=== PATIENT | female | born 1935 | race Caucasian/White ===

== ENCOUNTER 2023-02-02 11:18 | Inpatient (IN) ==
[2023-02-02 12:23] LABS: POC Calcium, Ionized 1.18 (1.16-1.32); POC Creatinine 1.1 (0.6-1.2); POC Potassium 4.1 (3.3-5.1)
[2023-02-02 13:30] LABS: ALT/SGPT 21 U/L (<40); AST/SGOT 23 U/L (<32); Albumin 3.9 gm/dL (3.2-5.2); Alkaline Phosphatase 79 U/L (39-117); Bilirubin,Direct < 0.2 mg/dL (0-0.3); Bilirubin,Total 0.6 mg/dL (0.1-1.0); Globulin 2.4 gm/dL (2.2-3.7)
[2023-02-02 13:55] LABS: Appearance,Urine HAZY (Clear); Bacteria,Urine FEW /hpf (0); Bilirubin,Urine Negative (Negative); Color,Urine YELLOW; Culture Indicated,Urine No; Glucose,Urine (UA) Negative (Negative); Ketones,Urine Negative (Negative); Leukocyte Esterase,Urine 250 /uL (Negative); Mucus,Urine MANY /hpf; Nitrate,Urine Negative (Negative); Protein,Urine 100 mg/dL (Negative); Specific Gravity,Urine 1.026 (1.000-1.035); Urine Blood 0.03 mg/dL (Negative); Urine RBC 8 /hpf (0-3); Urine Squamous Epithelial Cell 5 /hpf (0-4); Urine WBC 34 /hpf (0-4); Urobilinogen,Urine Negative
[2023-02-02] MEDS ORDERED: cefTRIAXone 2 GM in DEXTROSE 5% IN WATER 50 ML IV ONE (14:55)
[2023-02-02 15:22] LABS: Basophils # (Auto) 0.03 K/mcL (0.00-0.30); Basophils % (Auto) 0.3 % (0.0-2.0); Eosinophils # (Auto) 2.56 K/mcL (0.00-0.70); Eosinophils % (Auto) 25.1 % (0.0-7.0); Hematocrit 45.6 % (34.1-44.9); Hemoglobin 13.7 g/dL (11.2-15.7); Lymphocytes # (Auto) 0.86 K/mcL (1.50-4.80); Lymphocytes % (Auto) 8.4 % (15.5-49.0); Mean Cell Volume 96.8 fL (80.0-100.0); Mean Platelet Volume 10.8 fL (8.8-12.5); Monocytes # (Auto) 0.75 K/mcL (0.10-0.90); Monocytes % (Auto) 7.3 % (1.0-12.0); Neutrophils % (Auto) 58.6 % (38.0-78.0); Platelet Count 290 K/mcL (140-440); RBC 4.71 M/mcL (3.59-5.38); Red Cell Distribution Width 15.3 % (11.5-14.5); WBC 10.2 K/mcL (4.5-11.0)
[2023-02-02] MEDS ORDERED: HALOPERIDOL 5 MG TABLET PO ONE (16:41)
[2023-02-02] MEDS ORDERED: POTASSIUM CHLORIDE 40 MEQ in DEXTROSE 5% IN WATER 500 ML IV PRN (18:46)
[2023-02-02] MEDS ORDERED: IPRATROPIUM/ALBUTEROL 3 ML AMPUL.NEB NEB PRN (18:46)
[2023-02-02] MEDS ORDERED: MAGNESIUM SULFATE 2 GM/50 ML BAG IV PRN (18:46)
[2023-02-02] MEDS ORDERED: METOPROLOL TARTRATE 5 MG/5 ML VIAL IV PRN (18:46)
[2023-02-02] MEDS ORDERED: ACETAMINOPHEN 325 MG TABLET PO PRN (18:46)
[2023-02-02] MEDS ORDERED: POTASSIUM CHLORIDE 20 MEQ TABLET PO PRN ×2 (18:46)
[2023-02-02] MEDS ORDERED: ONDANSETRON 4 MG/2 ML VIAL IV PRN (18:46)
[2023-02-02] MEDS ORDERED: SENNOSIDES 1 TABLET PO PRN (18:46)
[2023-02-02] MEDS ORDERED: cefTRIAXone 1 GM in DEXTROSE 5% IN WATER 50 ML IV SCH (18:46)
[2023-02-02] MEDS ORDERED: POLYETHYLENE GLYCOL 3350 17 GM PACKET PO PRN (18:46)
[2023-02-02] MEDS ORDERED: OLANZapine 5 MG TABLET PO PRN (18:46)
[2023-02-02] MEDS: 0.9 % SODIUM CHLORIDE 1,000 ML IV SCH (19:32)
[2023-02-02] MEDS: 0.9 % SODIUM CHLORIDE 10 ML SYRINGE IV SCH (20:01)
[2023-02-02] MEDS: TRIAMCINOLONE CREAM 0.1% 15G 1 DOSE TUBE TOPICAL SCH (20:57)
[2023-02-02] MEDS ORDERED: BETAMETHASONE DIPR OINT 0.05% 15 GM TUBE TOPICAL SCH (21:00)
[2023-02-02] MEDS: HALOPERIDOL 5 MG TABLET PO PRN (21:20)
[2023-02-02] MEDS: DOCUSATE SODIUM 100 MG CAPSULE PO SCH (21:23)
[2023-02-02] MEDS: FAMOTIDINE 20 MG TABLET PO SCH (21:23)
[2023-02-03] MEDS: 0.9 % SODIUM CHLORIDE 10 ML SYRINGE IV SCH ×3 (04:20→22:24)
[2023-02-03] MEDS: 0.9 % SODIUM CHLORIDE 1,000 ML IV SCH (04:38)
[2023-02-03 06:48] LABS: Basophils # (Auto) 0.02 K/mcL (0.00-0.30); Basophils % (Auto) 0.2 % (0.0-2.0); Eosinophils # (Auto) 2.48 K/mcL (0.00-0.70); Eosinophils % (Auto) 28.1 % (0.0-7.0); Hematocrit 39.2 % (34.1-44.9); Hemoglobin 12.3 g/dL (11.2-15.7); Lymphocytes # (Auto) 1.08 K/mcL (1.50-4.80); Lymphocytes % (Auto) 12.2 % (15.5-49.0); Mean Cell Volume 93.3 fL (80.0-100.0); Mean Corpuscular HGB Conc 31.4 g/dL (31.0-36.0); Mean Platelet Volume 10.9 fL (8.8-12.5); Monocytes # (Auto) 0.73 K/mcL (0.10-0.90); Monocytes % (Auto) 8.3 % (1.0-12.0); Neutrophils % (Auto) 51.1 % (38.0-78.0); Platelet Count 251 K/mcL (140-440); Red Cell Distribution Width 14.8 % (11.5-14.5); WBC 8.8 K/mcL (4.5-11.0)
[2023-02-03 07:04] LABS: ALT/SGPT 15 U/L (<40); AST/SGOT 19 U/L (<32); Albumin 3.4 gm/dL (3.2-5.2); Albumin/Globulin Ratio 1.8 (1.0-2.3); Alkaline Phosphatase 67 U/L (39-117); Bilirubin,Direct < 0.2 mg/dL (0-0.3); Bilirubin,Total 0.4 mg/dL (0.1-1.0); Blood Urea Nitrogen 13 mg/dL (8-23); Calcium 8.7 mg/dL (8.6-10.4); Carbon Dioxide 26 mmol/L (22-30); Chloride 106 mmol/L (96-108); Globulin 1.9 gm/dL (2.2-3.7); Glomerular Filtration Rate 67; Glucose 91 mg/dL (70-105); Lactate Dehydrogenase 321 U/L (135-225); Phosphorous 3.5 mg/dL (2.5-4.5); Triglycerides 129 mg/dL (<150); Uric Acid 5.4 mg/dL (2.5-8.0)
[2023-02-03] MEDS: FAMOTIDINE 20 MG TABLET PO SCH (08:27)
[2023-02-03] MEDS: HALOPERIDOL 5 MG TABLET PO PRN ×2 (08:27→20:09)
[2023-02-03] MEDS: cefTRIAXone 1 GM VIAL IV SCH (08:27)
[2023-02-03] MEDS: METOPROLOL SUCCINATE 25 MG TAB.XL.24H PO SCH ×3 (09:03→20:09)
[2023-02-03] MEDS: DOCUSATE SODIUM 100 MG CAPSULE PO SCH ×2 (09:03→21:00)
[2023-02-03] MEDS: APIXABAN 5 MG TABLET PO SCH ×2 (09:10→20:08)
[2023-02-03] MEDS ORDERED: FUROSEMIDE 20 MG/2 ML VIAL IV SCH (10:29)
[2023-02-03] MEDS: BETAMETHASONE VALERATE 0.1% TOPICAL SCH ×2 (12:22→22:24)
[2023-02-03] MEDS: TRIAMCINOLONE CREAM 0.1% 15G 1 DOSE TUBE TOPICAL SCH ×2 (12:22→22:24)
[2023-02-03] MEDS: MEMANTINE 10 MG TABLET PO SCH ×2 (14:07→20:08)
[2023-02-04] MEDS ORDERED: QUEtiapine 25 MG TABLET PO ONE (00:28)
[2023-02-04] MEDS ORDERED: QUEtiapine 25 MG TABLET ONE (00:43)
[2023-02-04] MEDS: HALOPERIDOL 5 MG TABLET PO PRN (02:26)
[2023-02-04] MEDS ORDERED: LORazepam 2 MG/ML VIAL IV ONE (03:17)
[2023-02-04] MEDS ORDERED: LORazepam 2 MG/ML VIAL ONE (03:25)
[2023-02-04] MEDS ORDERED: DIVALPROEX SODIUM ER 250 MG TABLET PO ONE ×2 (03:35)
[2023-02-04] MEDS ORDERED: HALOPERIDOL LACTATE 5 MG/ML VIAL IV ONE (03:36)
[2023-02-04] MEDS: METOPROLOL SUCCINATE 25 MG TAB.XL.24H PO SCH ×2 (11:02→21:47)
[2023-02-04] MEDS: APIXABAN 5 MG TABLET PO SCH ×2 (11:02→21:46)
[2023-02-04] MEDS: MEMANTINE 10 MG TABLET PO SCH ×2 (11:03→21:47)
[2023-02-04] MEDS: DOCUSATE SODIUM 100 MG CAPSULE PO SCH ×2 (11:03→21:00)
[2023-02-04] MEDS: FAMOTIDINE 20 MG TABLET PO SCH (11:04)
[2023-02-04] MEDS: 0.9 % SODIUM CHLORIDE 10 ML SYRINGE IV SCH ×3 (11:38→21:49)
[2023-02-04] MEDS ORDERED: OLANZapine 10 MG VIAL IM PRN (12:49)
[2023-02-04] MEDS: cefTRIAXone 1 GM VIAL IV SCH (14:35)
[2023-02-04] MEDS: BETAMETHASONE VALERATE 0.1% TOPICAL SCH ×2 (15:05→21:48)
[2023-02-04] MEDS: OLANZapine 2.5 MG TABLET PO PRN (18:20)
[2023-02-04] MEDS: OLANZapine 5 MG TABLET PO SCH (21:47)
[2023-02-05] MEDS: OLANZapine 2.5 MG TABLET PO PRN ×3 (01:22→23:26)
[2023-02-05] MEDS: HALOPERIDOL 5 MG TABLET PO PRN (03:33)
[2023-02-05] MEDS: FAMOTIDINE 20 MG TABLET PO SCH (08:57)
[2023-02-05] MEDS: DOCUSATE SODIUM 100 MG CAPSULE PO SCH ×2 (08:57→21:24)
[2023-02-05] MEDS: APIXABAN 5 MG TABLET PO SCH ×2 (08:57→21:25)
[2023-02-05] MEDS: MEMANTINE 10 MG TABLET PO SCH ×2 (08:57→21:25)
[2023-02-05] MEDS: METOPROLOL SUCCINATE 25 MG TAB.XL.24H PO SCH ×2 (08:57→21:25)
[2023-02-05] MEDS: cefTRIAXone 1 GM VIAL IV SCH (09:03)
[2023-02-05] MEDS: OLANZapine 2.5 MG TABLET PO SCH (10:08)
[2023-02-05] MEDS ORDERED: cefTRIAXone 1 GM VIAL IM SCH (10:09)
[2023-02-05] MEDS: 0.9 % SODIUM CHLORIDE 10 ML SYRINGE IV SCH ×3 (11:43→21:26)
[2023-02-05] MEDS: BETAMETHASONE VALERATE 0.1% TOPICAL SCH ×2 (11:48→21:26)
[2023-02-05] MEDS ORDERED: MELATONIN 3 MG TABLET PO SCH (19:00)
[2023-02-05] MEDS: OLANZapine 5 MG TABLET PO SCH (21:24)
[2023-02-06] MEDS: HALOPERIDOL 5 MG TABLET PO PRN (00:52)
[2023-02-06] MEDS: 0.9 % SODIUM CHLORIDE 10 ML SYRINGE IV SCH (04:36)
[2023-02-06] MEDS: APIXABAN 5 MG TABLET PO SCH (07:54)
[2023-02-06] MEDS: METOPROLOL SUCCINATE 25 MG TAB.XL.24H PO SCH (07:55)
[2023-02-06] MEDS: MEMANTINE 10 MG TABLET PO SCH (07:55)
[2023-02-06] MEDS: DOCUSATE SODIUM 100 MG CAPSULE PO SCH (12:05)
[2023-02-06] MEDS: FAMOTIDINE 20 MG TABLET PO SCH (12:07)
[2023-02-06] MEDS: BETAMETHASONE VALERATE 0.1% TOPICAL SCH (12:07)
[2023-02-06] MEDS: OLANZapine 2.5 MG TABLET PO SCH (12:11)
== END 2023-02-06 08:15 | disposition home or self-care (01) | DRG 71 ==
LOC: ED 11:18 → MEDSUR 11:18 → OBSVTOIN 18:45 → INTOOBSV 18:45
PROVIDERS: ADMIT Internal Medicine; ATTEND Internal Medicine